=== PATIENT | male | born 1965 | race Caucasian/White ===

== ENCOUNTER 2017-12-25 19:42 | Emergency (ER) | payer BC ==
[~2017-12-25] VITALS: Ht 180.3 cm; Wt 124.6 kg
[2017-12-25 19:49] VITALS: TEMP 36.8; Ht 180.3 cm; Wt 124.6 kg
[2017-12-25] MEDS ORDERED: IBUPROFEN 600 MG TAB PO STA (20:51)
--- NOTE | 2017-12-25 20:51 | DIAGNOSTIC IMAGING REPORT ---
R WRIST W/NAVICULAR MIN 3 VIEWS CLINICAL HISTORY: Right wrist pain status post fall. COMPARISON: None FINDINGS: No acute fracture of the distal right radius is noted. No scaphoid fracture is noted. A subtle lucency within the distal right ulna is unlikely to reflect a fracture. There is a possible nondisplaced triquetral fracture. IMPRESSION: 1. Possible nondisplaced triquetral fracture. 2. Subtle lucency within the distal right ulna which is likely artifactual. Electronically signed by: David Smallwood M.D. 12/25/2017 8:50 PM Dictated Date/Time: 12/25/2017 8:46 PM
--- NOTE | 2017-12-25 20:53 | DIAGNOSTIC IMAGING REPORT ---
R HAND MIN 3 VIEWS ROUTINE CLINICAL HISTORY: Right hand pain following fall. COMPARISON: None FINDINGS: There is a possible nondisplaced triquetral fracture. No definite fracture is identified on this examination. Scaphoid appears intact. IMPRESSION: Equivocal nondisplaced triquetral fracture. Electronically signed by: David Smallwood M.D. 12/25/2017 8:51 PM Dictated Date/Time: 12/25/2017 8:50 PM
[2017-12-25 21:16] VITALS: BP 163/110; PULSE 95; O2SAT 96
[2017-12-25] MEDS ORDERED: TRAMADOL HCL 50 MG HOME PACK PO ONE (21:30)
[2017-12-25] MEDS ORDERED: TRAM-10 PO (21:31)
--- NOTE | 2017-12-25 21:32 | EMERGENCY ROOM VISIT NOTE ---
ED Visit Note First contact with patient: 20:42 CHIEF COMPLAINT: Right wrist injury 2 hours ago Patient is a [id number] 52-year-old male who presents the emergency department for evaluation of right wrist pain t after a fall that occurred about 2 hours ago. He tripped at home, and tried to catch himself on his extended right hand and wrist. He complains of pain in the ulnar aspect of the hand and wrist just slightly. It is worse with movement. He notes swelling and a sensation of his wrist is tight. He applied ice to the area, but has not taken any medications. He rates his discomfort an 8/10. REVIEW OF SYSTEMS: Review of systems as per HPI. All other systems reviewed were negative. At least 6 systems reviewed. PMH: Electronic medical records are reviewed and summarized as above/below. See Problem List. SOCIAL HISTORY: Patient lives at home with his . Employed. PHYSICAL EXAM: Vital Signs: Reviewed Nurse's notes. MENTAL STATUS: Well- appearing 52-year-old male who is awake and alert and in no distress due to his stated complaint. MUSCULOSKELETAL: Examination of the right wrist no mild dorsal soft tissue swelling. Pain is noted over the ulnar styloid, and into the ulnar aspect of the carpal region. Pain radiates slightly into the fifth metacarpal. There is no anatomic snuffbox tenderness noted. Finger range of motion is full, he has pain with wrist range of motion. Skin is intact. Right upper extremity is neurovascularly intact. . EMERGENCY DEPARTMENT COURSE: The patient was medicated with ibuprofen for discomfort. X-rays had been ordered by nursing staff prior to my assessment of the patient. X-rays were suspicious for a triquetral fracture. This does correlate with the patient's area of pain. X-ray findings were reviewed with the patient and his . He was placed in a short arm volar Ortho-Glass splint. He was given a tramadol home pack. Driving precautions were discussed. Patient would like to follow-up with [facility]. He was given contact information for referral. Medication reconciliation: I attest that I have personally reviewed the patient' s current medication list. Blood pressure screening: Patient was found to have a slightly elevated blood pressure due to circumstances. I do not believe that the patient requires hypertension monitoring. Patient was reviewed in the [facility] Prescription Drug Monitoring Program, and there were no red flags noted. R HAND MIN 3 VIEWS ROUTINE CLINICAL HISTORY: Right hand pain following fall. COMPARISON: None FINDINGS: There is a possible nondisplaced triquetral fracture. No definite fracture is identified on this examination. Scaphoid appears intact. IMPRESSION: Equivocal nondisplaced triquetral fracture. R WRIST W/NAVICULAR MIN 3 VIEWS CLINICAL HISTORY: Right wrist pain status post fall. COMPARISON: None FINDINGS: No acute fracture of the distal right radius is noted. No scaphoid fracture is noted. A subtle lucency within the distal right ulna is unlikely to reflect a fracture. There is a possible nondisplaced triquetral fracture. IMPRESSION: 1. Possible nondisplaced triquetral fracture. 2. Subtle lucency within the distal right ulna which is likely artifactual. Problem List Medical Problems: (1) Acid reflux Status: Chronic (2) Hypertension Status: Chronic Current/Historical Medications Scheduled PRN Tramadol (Ultram), 1-2 TABS PO Q4H PRN for Pain Allergies Coded Allergies: No Known Allergies (Unverified , 12/25/17) Vital Signs Date Time Temp Pulse Resp B/P (MAP) Pulse Ox O2 Delivery O2 Flow Rate FiO2 12/25/17 21:16 95 16 163/110 96 12/25/17 19:49 36.8 88 20 165/109 97 Room Air Medications Administered Medications (Trade) Dose Ordered Sig/Leela Route Start Time Stop Time Status Last Admin Dose Admin Ibuprofen (Motrin Tab) 600 mg NOW STAT PO 12/25/17 20:51 12/25/17 20:52 DC 12/25/17 21:16 600 MG Tramadol HCl (Ultram Home Pack) 1 homepack UD ONCE PO 12/25/17 21:30 12/25/17 21:31 DC 12/25/17 21:35 1 HOMEPACK Departure Information Impression Primary Impression: Fracture of right carpal bone Prescriptions Tramadol (Ultram) 50 Mg Tab 1-2 TABS PO Q4H Y for Pain, #20 TAB For Initial Treatment Prov: Ramona Rogers PA 12/25/17 Referrals Hemant Velásquez M.D. (PCP) Alpesh Pearson D.O. Patient Instructions [facility] Additional Instructions Tramadol (Ultram) 50mg: Take 1-2 pills every four hours for breakthrough pain. Avoid alcohol, operating machinery or dangerous equipment, working on ladders or roofs, DRIVING, or situations where being under the influence may be dangerous. It is recommended to use an lhqq-pzm-zkayvmp stool softener such as Colace, 100mg twice daily while taking this medication to avoid constipation. Ibuprofen(Motrin, Advil) may be used for fever or pain. Use 600mg every six hours as needed. Take with food. Avoid using more than 2400mg in a 24 hour period. Do not use 2400mg per day for more than three consecutive days without physician direction. Prolonged inappropriate use can lead to stomach upset or ulcers. This medication can be taken if you need to drive, work, or perform activities which may be dangerous when taking narcotic pain medication. (AND/OR) Acetaminophen(Tylenol) may be used for fever or pain. Use 1000mg every six hours as needed. Avoid using more than 3000mg in a 24 hour period. This medication can be taken if you need to drive, work, or perform activities which may be dangerous when taking narcotic pain medication. Ice compresses for 20 minutes at a time four times daily for 2-3 days. Rest and elevate your injury. Do not get the splint wet. If your splint feels excessively tight, you have worsening pain, develop numbness or tingling, or your digits appear blue, loosen the ulysses wrap. Then reapply the ulysses wrap gently without removing the splint. If your symptoms are not quickly relieved return to the ER for re- evaluation. Continue current medications. Return to the ER immediately for any numbness, tingling, severe pain, extreme swelling in the extremity or as needed. Call [facility] tomorrow to arrange follow up for your injury. Problem Qualifiers Primary Impression: Fracture of right carpal bone Encounter type: initial encounter Carpal bone: triquetrum Fracture type: closed Fracture alignment: nondisplaced Qualified Codes: S62.114A - Nondisplaced fracture of triquetrum [cuneiform] bone, right wrist, initial encounter for closed fracture
== END 2017-12-25 21:44 | disposition home or self-care (01) ==
LOC: C.EDB 19:44 → C.EDD 21:44
DX: S62.114A Nondisplaced fracture of triquetrum [cuneiform] bone, right wrist, initial encounter for closed fracture (principal); I10 Essential (primary) hypertension; K21.9 Gastro-esophageal reflux disease without esophagitis; W01.0XXA Fall on same level from slipping, tripping and stumbling without subsequent striking against object, initial encounter